=== PATIENT | female | born 1985 | race Caucasian/White ===

== ENCOUNTER 2017-07-03 15:12 | Emergency (ER) | payer OTHER ==
[~2017-07-03] VITALS: Ht 162.6 cm; Wt 80.0 kg
[~2017-07-03 15:12] MED LIST: AMOXICILLIN500 MG PO; AUGMENTIN875TAB PO; BACTRIM DS1 TAB PO; FLONASE SPRAY50 MCG; MACROBID100 MG PO; MUCINEX600 MG PO; NAPROSYN500 MG OR; NAPROSYN500 MG PO; NO MEDS; PERCOCET1 TA4 PO; ZOFRAN ODT8 MG PO
[2017-07-03] MEDS ORDERED: NAPROSYN500 MG PO (16:22)
[2017-07-03 16:35] VITALS: BP 128/61
== END 2017-07-03 16:35 | disposition home or self-care (01) | DRG 563 ==
LOC: ED 15:12
DX: S93.401A Sprain of unspecified ligament of right ankle, initial encounter (principal); W16.112A Fall into natural body of water striking water surface causing other injury, initial encounter; Y93.89 Activity, other specified; Y92.828 Other wilderness area as the place of occurrence of the external cause